=== PATIENT | male | born 1985 | race Caucasian/White ===

== ENCOUNTER 2021-03-26 09:14 | Emergency (ER) | payer MEDICAID, OTHER, SELFPAY ==
[~2021-03-26] VITALS: Ht 180.3 cm; Wt 106.8 kg
[2021-03-26 09:14] VITALS: BP 144/75
--- NOTE | 2021-03-26 11:05 | REP ---
INDICATION: headaches behind right eye. COMPARISON: None. TECHNIQUE: CT BRAIN PERFORMED IN THE AXIAL PLANE. CORONAL RECONSTRUCTION IMAGES ARE PERFORMED. FINDINGS: THE VENTRICLES ARE NORMAL IN SIZE AND POSITION. THERE IS NO MIDLINE SHIFT OR MASS EFFECT. GONZALEZ-WHITE DIFFERENTIATION IS WELL MAINTAINED. THERE IS NO ACUTE INTRACRANIAL HEMORRHAGE OR EXTRA-AXIAL FLUID COLLECTION. BONE WINDOW EXAMINATION IS UNREMARKABLE. VISUALIZED MASTOID AIR CELLS AND PARANASAL SINUSES ARE CLEAR. IMPRESSION: NEGATIVE NONCONTRAST CT BRAIN. <Electronically signed by Maikel Gonzalez > 03/26/21 1107
== END 2021-03-26 11:26 | disposition home or self-care (01) ==
LOC: M ED 09:14
DX: G43.809 Other migraine, not intractable, without status migrainosus (principal); F17.210 Nicotine dependence, cigarettes, uncomplicated; F12.20 Cannabis dependence, uncomplicated